=== PATIENT | male | born 1995 | race Caucasian/White ===

== ENCOUNTER 2018-01-16 16:17 | Emergency (ER) | payer MEDICAID ==
[~2018-01-16] VITALS: Ht 1703 cm; Wt 118.5 kg
[2018-01-16 16:18] VITALS: BP 155/94
== END 2018-01-16 18:44 | disposition home or self-care (01) ==
LOC: ER 16:18
DX: R10.11 Right upper quadrant pain (principal); R23.8 Other skin changes
CPT/HCPCS: 99281

== ENCOUNTER 2019-08-02 14:24 | Emergency (ER) | payer SELFPAY ==
[~2019-08-02] VITALS: Ht 182.9 cm; Wt 113.6 kg
[2019-08-02 14:36] VITALS: BP 129/73
== END 2019-08-02 15:35 | disposition home or self-care (01) ==
LOC: ER 14:25
DX: S61.211A Laceration without foreign body of left index finger without damage to nail, initial encounter (principal); W26.0XXA Contact with knife, initial encounter; Y93.89 Activity, other specified; Y92.89 Other specified places as the place of occurrence of the external cause; Y99.8 Other external cause status
CPT/HCPCS: 12001; 99283

== ENCOUNTER 2019-08-10 16:11 | Emergency (ER) | payer OTHER ==
[~2019-08-10] VITALS: Ht 182.9 cm; Wt 106.2 kg
[2019-08-10 16:17] VITALS: BP 115/59
== END 2019-08-10 16:23 | disposition home or self-care (01) ==
LOC: ER 16:11
DX: S61.211D Laceration without foreign body of left index finger without damage to nail, subsequent encounter (principal); W26.0XXD Contact with knife, subsequent encounter
CPT/HCPCS: 99281